=== PATIENT | female | born 1945 | race Caucasian/White ===

== ENCOUNTER 2016-11-24 22:52 | Outpatient (CLI) ==
[2015-12-28 22:56] VITALS: BMI 29.2
== END 2016-11-24 22:53 | disposition hospice, inpatient (51) ==
LOC: AMBL 22:52
PROVIDERS: ATTEND Family Medicine
DX: C34.90 Malignant neoplasm of unspecified part of unspecified bronchus or lung (principal); R53.1 Weakness